=== PATIENT | female | born 1940 | race Asian ===

== ENCOUNTER 2019-07-03 09:32 | Emergency (ER) | payer MEDICARE, OTHER ==
[~2019-07-03] VITALS: Ht 160 cm; Wt 67.0 kg
[~2019-07-03 09:32] MED LIST: ASPI-903 PO; ATOR20TA38 PO; BISA5TAB6 PO; BRIM15DR7 BOTH EYES; CARSR60 PO; CELE200C PO; IBAN150T21 PO; ICOS1CAP PO; IRBE300T15 PO; MEMA10TA PO; QUET25TA33 PO; [UNRECOGNIZED DRUG - OTHER]
[2019-07-03 09:49] VITALS: Ht 160 cm; Wt 67.0 kg
[2019-07-03] MEDS ORDERED: SOD CHLORIDE 0.9% 500 ML IV STA (11:58)
[2019-07-03 12:00] VITALS: BP 156/72; PULSE 66; RESP 16
[2019-07-03] MEDS ORDERED: MECLIZINE 12.5 MG TAB PO ONE (12:00)
== END 2019-07-03 14:15 | disposition home or self-care (01) ==
LOC: E/R 09:32
DX: G30.9 Alzheimer's disease, unspecified (principal); I10 Essential (primary) hypertension; F02.80 Dementia in other diseases classified elsewhere, unspecified severity, without behavioral disturbance, psychotic disturbance, mood disturbance, and anxiety; Z95.0 Presence of cardiac pacemaker; Z79.82 Long term (current) use of aspirin
CPT/HCPCS: 70450; 71045; 73590; 80053; 81003; 84484; 85025; 93005; 96360; 99285; J7040